=== PATIENT | female | born 1985 | race African-American/Black ===

== ENCOUNTER 2020-10-03 12:15 | Emergency (ER) | payer BC, OTHER ==
[~2020-10-03] VITALS: Ht 170.2 cm; Wt 72.7 kg
[2020-10-03 13:41] VITALS: BP 102/57
[2020-10-03 14:04] LABS: BILIRUBIN,URINE SMALL (NEG); CLARITY,URINE CLEAR; COLOR,URINE YELLOW; NITRITE,URINE NEGATIVE (NEG); PROTEIN,URINE NEGATIVE (NEG-TRACE)
[2020-10-03 14:10] LABS: BACTERIA,URINE MODERATE /HPF (0-FEW)
[2020-10-03 14:13] LABS: RBC,URINE 0 /HPF (0-2)
[2020-10-03] MEDS ORDERED: DIPH,PERTUSS(ACELL),TET VAC/PF 0.5 ML SYRINGE. VAX IM ONE (14:30)
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
[2020-10-03] MEDS ORDERED: AMOX1TAB11 PO (15:47)
[2020-10-03] MEDS ORDERED: TRAM50TA PO (15:47)
== END 2020-10-03 16:02 | disposition home or self-care (01) ==
LOC: ER 12:15
DX: S02.2XXA Fracture of nasal bones, initial encounter for closed fracture (principal); S02.401A Maxillary fracture, unspecified side, initial encounter for closed fracture; S50.11XA Contusion of right forearm, initial encounter; R30.0 Dysuria; Z88.5 Allergy status to narcotic agent; Y08.89XA Assault by other specified means, initial encounter; Y93.89 Activity, other specified; Y92.89 Other specified places as the place of occurrence of the external cause; Y99.8 Other external cause status
CPT/HCPCS: 70450; 70480; 72125; 81001; 81025; 87086; 90471; 90715; 99285

== ENCOUNTER 2020-10-10 08:30 | Emergency (ER) | payer BC ==
[~2020-10-10] VITALS: Ht 170.2 cm; Wt 80.0 kg
[~2020-10-10 08:30] MED LIST: AMOX1TAB11 PO; TRAM50TA PO
[2020-10-10] MEDS ORDERED: ASPIRIN CHEWABLE 81 MG TABLET. PO ONE (09:15)
[2020-10-10 09:19] LABS: BASO % 1 % (0-3); EOS # 0.1 x10^3/uL (0.0-0.7); EOS % 1 % (0-3); HEMATOCRIT 33.7 % (36.0-47.0); HEMOGLOBIN 10.9 g/dL (12.0-15.5); LYMPH # 2.3 x10^3/uL (1.0-4.8); LYMPH % 34 % (24-48); MEAN CORPUSCULAR HEMOGLOBIN 26 pg (25-35); MEAN CORPUSCULAR HGB CONC 33 g/dL (31-37); MEAN CORPUSCULAR VOLUME 80 fL (79-100); MONO # 0.4 x10^3/uL (0.0-1.1); MONO % 6 % (0-9); NEUT % 59 % (31-73); PLATELET COUNT 369 x10^3/uL (140-400); RED BLOOD COUNT 4.19 x10^6/uL (3.50-5.40); RED CELL DISTRIBUTION WIDTH 13.9 % (11.5-14.5); WHITE BLOOD COUNT 6.8 x10^3/uL (4.0-11.0)
[2020-10-10 09:32] LABS: CALCIUM 8.8 mg/dL (8.5-10.1); CREATININE 0.8 mg/dL (0.6-1.0); GFR 100.6
[2020-10-10 09:36] LABS: ALBUMIN 3.9 g/dL (3.4-5.0); PHOSPHORUS 2.3 mg/dL (2.6-4.7); TOTAL BILIRUBIN 0.3 mg/dL (0.2-1.0); TOTAL PROTEIN 7.7 g/dL (6.4-8.2)
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
[2020-10-10] MEDS ORDERED: IOHEXOL 350 MG/ML 100 ML VIAL. IV ONE (10:15)
--- NOTE | 2020-10-10 11:13 | RAD ---
CTA CHEST INDICATION: chest pain, pe Comparison: None. TECHNIQUE: Following the uneventful administration of intravenous contrast, 100 cc Omnipaque 350, axi al CT sections were obtained through the lungs and upper abdomen. Multiplanar reconstructions and MIP images were obtained. PQRS compliance statement: One or more of the following individualized dose reduction techniques were utilized for this examinat ion: 1. Automated exposure control 2. Adjustment of the mA and/or kV according to patient size 3. Use of iterative reconstruction technique FINDINGS: Pulmonary arteries: No evidence of pulmonary thromboembolic disease. Lungs and Airways: No pulmonary mass or consolidation. No abnormality of the central airways. Pleura: The pleural spaces are normal. Heart and Mediastinum: The visualized thyroid is normal in size and attenuation. Asymmetric right axi llary lymphadenopathy. No mediastinal, hilar or retrocrural lymphadenopathy. The heart and pericardiu m are within normal limits. The great vessels of the thorax are normal. Abdomen: Limited images through the upper abdomen show no abnormality of the visualized organs. Bones and Soft Tissues: The visualized bones and chest wall soft tissues are within normal limits. IMPRESSION: 1. No evidence of pulmonary thromboembolic disease. 2. No pulmonary mass or consolidation. 3. Right axillary lymphadenopathy. Ipsilateral axillary lymphadenopathy has been reported in patients following Covid vaccination, and could be considered in the appropriate clinical setting, correlatio n with patient's history is recommended. Other etiologies including breast cancer are not excluded, a nd close clinical follow-up is recommended. Mammogram would be recommended for persistent or enlargin g lymphadenopathy. Electronically signed by: Vaibhav Bower MD (10/10/2020 11:11 AM) [id number]
[2020-10-10] MEDS ORDERED: KETOROLAC 15 MG/ML VIAL. IVP ONE (11:30)
[2020-10-10 12:35] VITALS: BP 97/71
[2020-10-10] MEDS ORDERED: NAPR-683 PO (13:00)
--- NOTE | 2020-10-10 18:08 | EKG ---
[facility] [address] [place] [address] Test Date: 2020-10-10 Test Time: 08:35:04 Pat Name: JORDAN WEST Department: Room: Gender: F Residential Collections: : 1985 Requested By: JASVIR SHERIFF Order Number: [id number] Reading MD: Measurements Intervals [place] Rate: 76 P: 40 [place]: 154 QRS: 11 QRSD: 60 T: 24 QT: 362 QTc: 407 Interpretive Statements SINUS RHYTHM NORMAL ECG RI6.02 No previous ECG available for comparison
== END 2020-10-10 13:37 | disposition home or self-care (01) ==
LOC: ER 08:30
DX: R07.89 Other chest pain (principal); R06.02 Shortness of breath; Z88.5 Allergy status to narcotic agent
CPT/HCPCS: 36415; 71275; 80053; 81025; 83690; 83735; 83880; 84100; 84484; 85025; 85379; 93005; 96374; 99285; J1885; Q9967